=== PATIENT | male | born 1970 | race African-American/Black ===

== ENCOUNTER → 2021-07-20 07:39 | Outpatient (CLI) | payer BC, SELFPAY ==
--- NOTE | ~2021-07-20 | US_ITS ---
EXAMINATION: US right upper quadrant DATE: 07/20/2021 08:06 INDICATION: Elevated LFTs. TECHNIQUE: Multiple grayscale and Doppler ultrasound images of the right upper quadrant were obtained . COMPARISON: None available FINDINGS: The liver is normal with normal echogenicity and echotexture. No surface nodularity. Normal hepatopetal flow in the main portal vein. Multiple shadowing mobile echogenic foci, no surrounding f luid. The normal common bile duct measures 0.4 cm. There was no sonographic Antonio sign. The visualiz ed portions of the inferior vena cava are normal. IMPRESSION: 1. Cholelithiasis. No sonographic evidence of cholecystitis. Reviewed, dictated and finalized at location K.
== END ==
PROVIDERS: PCP Family Medicine Sports Medicine; Visit Provider Family Medicine Sports Medicine
DX: R79.89 Other specified abnormal findings of blood chemistry (principal); K80.20 Calculus of gallbladder without cholecystitis without obstruction
CPT/HCPCS: 76705